=== PATIENT | female | born 1945 | race Two or more races ===

== ENCOUNTER → 2020-10-02 | Outpatient (CLI) | payer MEDICARE, OTHER | END | disposition home or self-care (01) | LOC: LAB 16:04 | PROVIDERS: ATTEND Physician Assistant | DX: R39.0 Extravasation of urine (principal) | CPT/HCPCS: 87086 ==

== ENCOUNTER 2023-05-27 06:25 | Inpatient (IN) | payer MEDICARE, OTHER ==
[~2023-05-27] VITALS: Ht 152.4 cm; Wt 55.4 kg
[2023-05-27] VITALS (14 sets, daily range): BP systolic 105–154; BP diastolic 56–102; PULSE 85–125; RESP 15–18; TEMP 97.5–97.8; O2SAT 95–100
[~2023-05-27 06:25] MED LIST: BACL20TA PO; CHOLTAB12 PO; CYAN-17 PO; CYCL-839 PO; EMPA1TAB3 PO; FOLI-119 PO; GABA400C PO; INSUINJ18 SC; LEVO88TA4 PO; MULT-688 PO; UPAD15TA PO
[2023-05-27] MEDS ORDERED: VANCOMYCIN HCL 1000 MG VL ONE (06:35)
[2023-05-27] MEDS ORDERED: TRANEXAMIC ACID 20 ML ONE (06:36)
[2023-05-27] MEDS ORDERED: EPINEPHrine HCL 1 MG/1 ML AMP ONE ×2 (06:36→07:08)
[2023-05-27] MEDS ORDERED: ceFAZolin 2 GM/D5W100ml 100 ML IV ONE (06:36)
[2023-05-27] MEDS ORDERED: SUCCINYLCHOLINE CHLORIDE 20 MG/ML 10ML VIAL IV ONE (07:04)
[2023-05-27] MEDS ORDERED: TETRACAINE 1% INJ 2 ML VIAL IJ ONE (07:04)
[2023-05-27] MEDS ORDERED: SODIUM CHLORIDE LOCK 10 ML ONE (07:06)
[2023-05-27] MEDS ORDERED: PROPOFOL 10 MG/ML 20 ML IV ONE (07:06)
[2023-05-27] MEDS ORDERED: MIDAZOLAM HCL 2MG/2ML 2ml VIAL (1mg/ml) ONE (07:06)
[2023-05-27] MEDS ORDERED: fentaNYL CITRATE 100 MCG/2 ML VL ONE (07:06)
[2023-05-27] MEDS ORDERED: MORPHINE SULF PF 5 MG/10 ML VIAL ONE (07:06)
[2023-05-27] MEDS ORDERED: ONDANSETRON HCL 4 MG/2 ML VIAL ONE (07:06)
[2023-05-27] MEDS ORDERED: DexAMETHasone SOD PHOS 10MG/1ML VIAL INJ ONE (07:06)
[2023-05-27] MEDS ORDERED: diphenhdrAMINE HCL 50 MG/1 ML VL IV PRN (08:15)
[2023-05-27] MEDS ORDERED: MORPHINE SULFATE INJ 2 MG/ml SYRG IV PRN (08:15)
[2023-05-27] MEDS ORDERED: METOCLOPRAMIDE HCL 5MG/ml INJ 2ml VIAL IV PRN (08:15)
[2023-05-27] MEDS ORDERED: NALOXONE HCL 0.4 MG/ML VIAL IV PRN (08:15)
[2023-05-27] MEDS ORDERED: HYDROmorphone HCL 2 MG/ML VL/or syr IV PRN ×2 (08:15)
[2023-05-27] MEDS ORDERED: ACCU-CHEK COMFORT CURVE STRIP VI ONE (08:15)
[2023-05-27] MEDS ORDERED: CYCLOBENZAPRINE HCL 10 MG TAB PO SCH (09:45)
[2023-05-27] MEDS ORDERED: DEXTROSE (50%) 50ML SYRG IV PRN (09:45)
[2023-05-27] MEDS: LEVOTHYROXINE SODIUM 88 MCG TAB PO SCH (09:58)
[2023-05-27] MEDS ORDERED: PATIENTS OWN MEDICATION (Empagliflozin (Jardiance) 25 MG) PO SCH (10:00)
[2023-05-27] MEDS ORDERED: PATIENTS OWN MEDICATION (Baclofen 10 MG) PO SCH (10:00)
[2023-05-27] MEDS: BACLOFEN 10 MG TAB PO SCH ×2 (10:14→21:21)
[2023-05-27] MEDS: PREGABALIN 25 MG CAP PO SCH ×2 (10:15→21:21)
[2023-05-27] MEDS: SODIUM CHLORIDE 0.9% 1,000 ML IV SCH ×2 (11:30→23:09)
[2023-05-27] MEDS ORDERED: oxyCODONE HCL 5MG TAB PO PRN (11:30)
[2023-05-27] MEDS: ACETAMINOPHEN 325 MG TAB PO SCH ×2 (12:00→17:46)
[2023-05-27] MEDS: KETOROLAC TROMETH 30 MG/ML 1ML VIAL IV SCH ×2 (12:35→17:57)
[2023-05-27] MEDS: oxyCODONE HCL 5MG TAB PO PRN (12:45)
[2023-05-27] MEDS: ACCU-CHEK COMFORT CURVE STRIP VI SCH ×3 (12:54→21:22)
[2023-05-27] MEDS: InsuLIN REG 1unit/0.01ml Soln (100units/ml) SC SCH ×3 (13:24→21:32)
[2023-05-27] MEDS: ceFAZolin 2 GM/D5W100ml 100 ML IV SCH ×2 (16:53→23:06)
[2023-05-27] MEDS: ONDANSETRON HCL 4 MG/2 ML VIAL IV PRN (17:58)
[2023-05-28] VITALS (25 sets, daily range): BP systolic 102–150; BP diastolic 59–85; PULSE 83–118; RESP 16–20; TEMP 36.8; O2SAT 92–100
[2023-05-28] MEDS: SODIUM CHLORIDE 0.9% 1,000 ML IV SCH ×3 (03:30→19:30)
[2023-05-28] MEDS: ACETAMINOPHEN 325 MG TAB PO SCH ×5 (05:23→23:48)
[2023-05-28] MEDS: KETOROLAC TROMETH 30 MG/ML 1ML VIAL IV SCH ×5 (05:27→23:49)
[2023-05-28] MEDS: ONDANSETRON HCL 4 MG/2 ML VIAL IV PRN ×5 (05:27→23:48)
[2023-05-28] MEDS: EMPAGLIFLOZIN 10 MG TAB PO SCH (06:15)
[2023-05-28] MEDS: ACCU-CHEK COMFORT CURVE STRIP VI SCH ×4 (06:20→21:04)
[2023-05-28] MEDS: InsuLIN REG 1unit/0.01ml Soln (100units/ml) SC SCH ×4 (06:22→21:20)
[2023-05-28 07:18] LABS: Basophils # (auto) 0 10 ^3/uL (0-0.2); Basophils % (auto) 0.2 % (0.0-2.0); Eosinophils # (auto) 0 10 ^3/uL (0-0.8); Hematocrit 30.2 % (36.0-46.0); Hemoglobin 10.2 g/dL (12.2-16.2); Lymphocytes # (auto) 0.9 10 ^3/uL (0.4-5.4); Lymphocytes % (auto) 10.9 % (10.0-50.0); Mean Corpuscular Hemoglobin 33.9 pg (28.0-32.0); Mean Corpuscular Hgb Conc. 33.8 g/dL (32.0-36.0); Mean Corpuscular Volume 100.3 fL (80.0-100.0); Monocytes # (auto) 1.2 10 ^3/uL (0-1.3); Monocytes % (auto) 14.1 % (0.0-12.0); Neutrophils # (auto) 6.4 10 ^3/uL (1.6-8.6); Neutrophils % (auto) 74.8 % (37.0-80.0); Red Blood Cells 3.01 10^6/uL (4.0-5.20); Red Cell Distribution Width 13.1 % (11.8-14.3); White Blood Cell 8.6 10^3/uL (4.4-10.8)
[2023-05-28 07:31] LABS: Chloride 111 mmol/L (98-107); Potassium 3.8 mmol/L (3.5-5.1); Sodium 141 mmol/L (136-145)
[2023-05-28 07:32] LABS: Anion Gap 5 (5-15); Carbon Dioxide 25 mmol/L (20-30)
[2023-05-28 07:34] LABS: Calcium 7.6 mg/dL (8.7-10.4)
[2023-05-28 07:39] LABS: BUN/Creatinine Ratio 18.2 (10.0-20.0); Blood Urea Nitrogen 10 mg/dL (9-23); Glucose 145 mg/dL (74-106)
[2023-05-28] MEDS: oxyCODONE HCL 5MG TAB PO PRN (09:05)
[2023-05-28] MEDS: BACLOFEN 10 MG TAB PO SCH ×2 (09:06→21:04)
[2023-05-28] MEDS: LEVOTHYROXINE SODIUM 88 MCG TAB PO SCH (09:06)
[2023-05-28] MEDS: APIXABAN 2.5 MG TAB PO SCH ×2 (09:06→21:04)
[2023-05-28] MEDS: PREGABALIN 25 MG CAP PO SCH ×2 (09:09→21:03)
[2023-05-29] VITALS (8 sets, daily range): BP systolic 107–146; BP diastolic 63–86; PULSE 101–113; RESP 16–18; TEMP 97.1–98.4; O2SAT 95–98
[2023-05-29] MEDS: SODIUM CHLORIDE 0.9% 1,000 ML IV SCH ×3 (03:30→19:30)
[2023-05-29] MEDS: ACETAMINOPHEN 325 MG TAB PO SCH ×4 (05:50→23:39)
[2023-05-29] MEDS: KETOROLAC TROMETH 30 MG/ML 1ML VIAL IV SCH ×4 (05:50→23:39)
[2023-05-29] MEDS: ONDANSETRON HCL 4 MG/2 ML VIAL IV PRN ×4 (05:50→23:38)
[2023-05-29] MEDS: EMPAGLIFLOZIN 10 MG TAB PO SCH (06:05)
[2023-05-29] MEDS: ACCU-CHEK COMFORT CURVE STRIP VI SCH ×5 (06:06→21:13)
[2023-05-29] MEDS: InsuLIN REG 1unit/0.01ml Soln (100units/ml) SC SCH ×4 (06:07→21:21)
[2023-05-29] MEDS: GABAPENTIN 400 MG CAP PO SCH ×2 (09:12→21:12)
[2023-05-29] MEDS: APIXABAN 2.5 MG TAB PO SCH ×2 (09:12→21:13)
[2023-05-29] MEDS: BACLOFEN 10 MG TAB PO SCH ×2 (09:12→21:13)
[2023-05-29] MEDS: LEVOTHYROXINE SODIUM 88 MCG TAB PO SCH (09:12)
[2023-05-29] MEDS: PREGABALIN 25 MG CAP PO SCH (09:12)
[2023-05-29] MEDS: oxyCODONE HCL 5MG TAB PO PRN (15:31)
[2023-05-30] MEDS: SODIUM CHLORIDE 0.9% 1,000 ML IV SCH ×2 (03:30→09:36)
[2023-05-30 05:00] VITALS: BP 120/66; PULSE 104; RESP 22; TEMP 97.9; O2SAT 95
[2023-05-30] MEDS: KETOROLAC TROMETH 30 MG/ML 1ML VIAL IV SCH ×2 (05:50→11:45)
[2023-05-30] MEDS: ACETAMINOPHEN 325 MG TAB PO SCH ×2 (05:55→11:43)
[2023-05-30] MEDS: EMPAGLIFLOZIN 10 MG TAB PO SCH (06:07)
[2023-05-30] MEDS: ACCU-CHEK COMFORT CURVE STRIP VI SCH ×2 (06:08→11:39)
[2023-05-30] MEDS: InsuLIN REG 1unit/0.01ml Soln (100units/ml) SC SCH ×2 (06:10→11:40)
[2023-05-30 08:30] VITALS: PULSE 97; PULSE 99; RESP 18; O2SAT 95
[2023-05-30 09:26] VITALS: BP 125/68; PULSE 111; RESP 19; TEMP 98.5; O2SAT 94
[2023-05-30] MEDS: LEVOTHYROXINE SODIUM 88 MCG TAB PO SCH (09:34)
[2023-05-30] MEDS: APIXABAN 2.5 MG TAB PO SCH (09:34)
[2023-05-30] MEDS: BACLOFEN 10 MG TAB PO SCH (09:34)
[2023-05-30] MEDS: GABAPENTIN 400 MG CAP PO SCH (09:34)
[2023-05-30 12:48] VITALS: BP 114/53; PULSE 98; RESP 17; TEMP 97.7; O2SAT 96
== END 2023-05-30 14:45 | disposition home or self-care (01) | DRG 470 ==
LOC: SUR 06:25 → TELE 09:31 → TELE-WESTW 14:34
PROVIDERS: ADMIT Orthopaedic Surgery; ATTEND Orthopaedic Surgery
PROC: 0SRB06Z Replacement of Left Hip Joint with Oxidized Zirconium on Polyethylene Synthetic Substitute, Open Approach (ICD-10-PCS; principal; 2023-05-27 07:27)
DX: M16.12 Unilateral primary osteoarthritis, left hip (principal); Z79.899 Other long term (current) drug therapy; M45.9 Ankylosing spondylitis of unspecified sites in spine
CPT/HCPCS: 36415; 72170; 73501; 80048; 82962; 85025; 86850; 86900; 86901; 97110; 97116; 97163; 97530; G0378; J0171; J0330; J1100; J1815; J1885; J2250; J2405; J2704